=== PATIENT | female | born 1985 | race Caucasian/White ===

== ENCOUNTER 2017-02-09 09:17 | Inpatient (IN) | payer OTHER ==
[~2017-02-09] VITALS: Ht 162.6 cm; Wt 82.6 kg
[2017-02-09] MEDS ORDERED: morphine 4 MG/ML VIAL IV STA ×2 (10:03→14:13)
[2017-02-09] MEDS ORDERED: ONDANSETRON 4 MG INJ IV STA ×2 (10:03→14:13)
[2017-02-09 10:23] LABS: ADD SCAN DIFF NO
[2017-02-09 10:26] LABS: BASOPHILS % 0.3 % (0.0-2.0); EOSINOPHILS # 0.1 10^3/ul (0.0-0.5); HEMATOCRIT 30.7 % (37.0-47.0); HEMOGLOBIN 9.2 g/dl (12.0-16.0); LYMPHOCYTES # 1.7 10^3/ul (0.8-2.9); LYMPHOCYTES % 13.4 % (15.0-51.0); MEAN CORPUSCULAR HEMOGLOBIN 20.6 pg (29.0-33.0); MEAN CORPUSCULAR VOLUME 68.7 fl (82.0-101.0); MEAN PLATELET VOLUME 10.7 fl (7.4-10.4); MONOCYTE # 0.8 10^3/ul (0.3-0.9); MONOCYTES % 6.7 % (0.0-11.0); NEUTROPHIL # 9.6 10^3/ul (1.6-7.5); NEUTROPHILS % 78.2 % (39.0-77.0); PLATELET COUNT 383 10^3/UL (140-415); RED BLOOD COUNT 4.47 10^6/ul (4.20-5.40); RED CELL DISTRIBUTION WIDTH 18.6 % (11.5-14.5); WHITE BLOOD COUNT 12.3 10^3/ul (4.8-10.8)
[2017-02-09 10:46] LABS: ALBUMIN/GLOBULIN RATIO 1.61; BILIRUBIN,INDIRECT 0.4 mg/dl (0-1.1); BILIRUBIN,TOTAL 0.4 mg/dl (0.2-1.3); CALCIUM 9.2 mg/dl (8.4-10.2); CREATININE 0.64 mg/dl (0.44-1.00); POTASSIUM 3.9 mmol/L (3.5-5.1); TOTAL PROTEIN 8.1 g/dl (6.1-8.1)
[2017-02-09] MEDS ORDERED: KETOROLAC 30 MG INJ IV STA (11:19)
--- NOTE | 2017-02-09 11:19 | ERD ---
ER Documentation Chief Complaint Date/Time DATE: 02/09/17 TIME: 11:15 Chief Complaint RIGHT LOWER QUADRANT PAIN,FEVER X 3 DAYS HPI This a 31-year-old female who presents the emergency department today complaining of right lower quadrant pain and fever for the past 3 days. States that she went to her primary care doctor today, Dr. Wright and was sent over here for further evaluation and workup. States that she had a temperature of 100.3 at the doctor's. States she took ibuprofen at 230 this morning. Denies any nausea vomiting, diarrhea. Denies any vaginal bleeding or vaginal discharge. States that she has had a tubal ligation. ROS All systems reviewed and are negative except as per history of present illness. Medications Home Meds No Active Prescriptions or Reported Meds Allergies Allergies: Coded Allergies: No Known Drug Allergy (Verified Allergy, Mild, 06/21/11) PMhx/Soc History of Surgery: No Anesthesia Reaction: No Hx Neurological Disorder: No Hx Respiratory Disorders: No Hx Cardiac Disorders: No Hx Psychiatric Problems: No Hx Miscellaneous Medical Probl: No Hx Alcohol Use: No Hx Substance Use: No Hx Tobacco Use: No Smoking Status: Never smoker Physical Exam Vitals Vital Signs Date Time Temp Pulse Resp B/P Pulse Ox O2 Delivery O2 Flow Rate FiO2 02/09/17 15:11 100.5 99 20 113/72 99 Room Air 02/09/17 09:18 99.6 104 18 133/64 98 Physical Exam Const: No acute distress Head: Atraumatic Eyes: Normal Conjunctiva ENT: Normal External Ears, Nose and Mouth. Neck: Full range of motion..~ No meningismus. Resp: Clear to auscultation bilaterally Cardio: Regular rate and rhythm, no murmurs Abd: Soft, right lower quadrant and right-sided pelvic pain per, non distended. Normal bowel sounds and no left lower quadrant pain. No right upper quadrant pain Skin: No petechiae or rashes Back: No midline or flank tenderness Ext: No cyanosis, or edema Neur: Awake and alert Psych: Normal Mood and Affect Result Diagram: 02/09/17 1015 02/09/17 1015 Results 24 hrs Laboratory Tests Test 02/09/17 10:15 02/09/17 11:02 White Blood Count 12.310^3/ul Red Blood Count 4.4710^6/ul Hemoglobin 9.2g/dl Hematocrit 30.7% Mean Corpuscular Volume 68.7fl Mean Corpuscular Hemoglobin 20.6pg Mean Corpuscular Hemoglobin Concent 30.0g/dl Red Cell Distribution Width 18.6% Platelet Count 26735^3/UL Mean Platelet Volume 10.7fl Neutrophils % 78.2% Lymphocytes % 13.4% Monocytes % 6.7% Eosinophils % 1.0% Basophils % 0.3% Nucleated Red Blood Cells % 0.0/100WBC Neutrophils # 9.610^3/ul Lymphocytes # 1.710^3/ul Monocytes # 0.810^3/ul Eosinophils # 0.110^3/ul Basophils # 0.010^3/ul Nucleated Red Blood Cells # 0.010^3/ul Sodium Level 143mmol/L Potassium Level 3.9mmol/L Chloride Level 105mmol/L Carbon Dioxide Level 26mmol/L Anion Gap 16 Blood Urea Nitrogen 10mg/dl Creatinine 0.64mg/dl Glucose Level 91mg/dl Calcium Level 9.2mg/dl Total Bilirubin 0.4mg/dl Direct Bilirubin 0.00mg/dl Indirect Bilirubin 0.4mg/dl Aspartate Amino Transf (AST/SGOT) 33IU/L Alanine Aminotransferase (ALT/SGPT) 40IU/L Alkaline Phosphatase 84IU/L Total Protein 8.1g/dl Albumin 5.0g/dl Globulin 3.10g/dl Albumin/Globulin Ratio 1.61 Lipase 24U/L Urine Color LT. YELLOW Urine Clarity CLEAR Urine pH 6.0 Urine Specific [place] 1.010 Urine Ketones NEGATIVE Urine Nitrite NEGATIVE Urine Bilirubin NEGATIVE Urine Urobilinogen 0.2 E.U./dL Urine Leukocyte Esterase NEGATIVE Urine Microscopic RBC 0-2/HPF Urine Microscopic WBC 0-2/HPF Urine Epithelial Cells RARE Urine Squamous Epithelial Cells Urine Bacteria RARE Urine Hemoglobin 2+ Urine Glucose NEGATIVE% Urine Total Protein NEGATIVE Current Medications Medications (Trade) Dose Ordered Sig/Fred Route PRN Reason Start Time Stop Time Status Last Admin Dose Admin Morphine Sulfate (morphine) 4 mg ONCE STAT IV 02/09/17 10:03 02/09/17 10:05 DC 02/09/17 10:12 Ondansetron HCl (Zofran Inj) 4 mg ONCE STAT IV 02/09/17 10:03 02/09/17 10:05 DC 02/09/17 10:11 Ketorolac Tromethamine (Toradol) 30 mg ONCE STAT IV 02/09/17 11:19 02/09/17 11:20 DC 02/09/17 11:25 Ondansetron HCl (Zofran Inj) 4 mg ONCE STAT IV 02/09/17 14:13 02/09/17 14:14 DC 02/09/17 14:34 Morphine Sulfate (morphine) 4 mg ONCE STAT IV 02/09/17 14:13 02/09/17 14:14 DC 02/09/17 14:34 Acetaminophen (Tylenol Tab) 500 mg ONCE STAT PO 02/09/17 15:17 02/09/17 15:18 DC 02/09/17 15:33 IV Flush (NS 3 ml) 3 ml PER PROTOCOL IV 02/09/17 16:00 Ondansetron HCl (Zofran Inj) 4 mg Q6H PRN IV NAUSEA AND/OR VOMITING 02/09/17 16:00 Acetaminophen/ Hydrocodone Bitart (Marshall (5/325)) 2 tab Q6H PRN PO SEVERE PAIN LEVEL 7-10 02/09/17 16:00 Morphine Sulfate 2 mg 2 mg Q4H PRN IV SEVERE PAIN LEVEL 7-10 02/09/17 16:00 Lactated Ringer's (Lr) 1,000 ml @ 125 mls/hr Q8H IV 02/09/17 16:00 Doxycycline Hyclate 100 mg 100 mg BID PO 02/09/17 16:00 Ceftriaxone Sodium (Rocephin) 50 ml @ 100 mls/hr Q24H IVPB 02/09/17 16:00 DIAGNOSTIC IMAGING REPORT Patient: VJ WALSH : 1985 Age: 31 Sex: F MR #: [id number] DOS: 02/09/17 0000 Ordering MD: ROSELIA MUNOZ PA-C Location: [facility] Room/Bed: PROCEDURE: US Pelvis CLINICAL INDICATION: Right pelvic pain TECHNIQUE: Sonographic evaluation of the pelvis was performed utilizing both transabdominal and transvaginal technique. Curved array transabdominal transducer technique as well as a high frequency endovaginal probe was utilized. Images were reviewed on the high-resolution PACS workstation. COMPARISON: CT abdomen and pelvis performed earlier on the same date FINDINGS: The uterus is normal in size, echogenicity, and morphology measuring 8.3 x 4.6 x 5.6 cm in dimension. The uterus is anteverted in normal position. The endometrium is within normal limits for a menstrual age female measuring 4.2 mm in diameter. The right ovary measures 3.3 x 1.8 x 2.1 cm in dimension. The left ovary measures 3.4 x 1.5 x 1.9 cm in dimension. The ovaries are symmetric in size, echogenicity, and morphology. Normal Doppler flow is demonstrated to both ovaries. There is mild fluid-filled distension of the fallopian tubes bilaterally. There are no adnexal masses. There is no significant free fluid in the pelvis. IMPRESSION: Mild fluid-filled distension of the fallopian tubes bilaterally may reflect hydrosalpinx or pyosalpinx. Clinical correlation required. Otherwise, unremarkable pelvic ultrasound. RPTAT: HH .Meagan Garcia MD, MD Date Time Electronically viewed and signed by .Meagan Garcia MD, on 02/09/2017 13 :47 .G/ CC: ROSELIA MUNOZ PA-C Procedures/[facility] This is a 31-year-old female who presents the emergency department today complaining of right lower quadrant pain and intermittent fevers for the past 3 days. Patient was sent here by Dr. Wright for further evaluation and management. I did obtain laboratory work as well as imaging. Laboratory work shows an elevated white blood cell count of 12.3. She has a hemoglobin of 9.2. Platelets are within normal limits. Electro lites are within normal limits. Lipase within normal limits. Liver functions within normal limits per there is no indication for transfusion. UA is negative for infection. Urine test is negative CT abdomen pelvis noncontrast shows no evidence of urolithiasis or obstructive uropathy. There is a normal-appearing appendix. There is no other significant intra-abdominal or pelvic process identified She has pain persisted and therefore did obtain an ultrasound Ultrasound shows mild fluid-filled distention of the fallopian tubes bilaterally may reflect hydrosalpinx or pyosalpinx. There are no adnexal masses. There is no significant free fluid in the pelvis. I placed a call to the laborist audio visual collections coordinator Dr. Woodward, who agreed to see the patient. , after doing a pelvic exam feels that the patient requires mission for IV antibiotics to treat possible tubo-ovarian abscess. This was explained to the patient. There is no evidence to suggest ovarian torsion at this time. This is likely the source of the patient's right-sided pelvic and abdominal pain. There is no other evidence of acute surgical abdomen. Patient was given morphine, Zofran here in the emergency department however pain persisted and she was then given Toradol. Patient developed a fever of 100.5 here in the emergency department and was given Tylenol. I have notified Dr. Machado of admission and any furhter orders placed will be done by Dr. Woodward Departure Diagnosis: Primary Impression: Pelvic pain Additional Impression: Fallopian tube abscess Condition: ROSELIA Chua PA-C Feb 09, 2017 11:19
--- NOTE | 2017-02-09 11:43 | RADRPT ---
PROCEDURE: CT Abdomen and Pelvis without contrast. CLINICAL INDICATION: Abdominal pain. TECHNIQUE: CT scan of the abdomen and pelvis without contrast was performed on a multidetector hig h-resolution CT scanner. The patient was scanned without intravenous contrast. Coronal and sagittal reformatted images were obtained from the axial source images. Images were reviewed on a high-resol muzu tv PACS workstation. The total exam CTDI equals 12.89 mGy and the total exam DLP equals 773.32 mG y-cm. One or the following dose reduction techniques were used: -Automated exposure control. -Adjustment of the mA and/or KV according to patient's size. -Use of iterative reconstruction technique. COMPARISON: None. FINDINGS: Lung Bases: Unremarkable. GI:. Unremarkable. Liver: Unremarkable. Gallbladder: Unremarkable. Pancreas: Unremarkable. Spleen: Unremarkablel Adrenals: Unremarkable. Kidneys: There is no evidence of urolithiasis or obstructive uropathy. Bladder: Unremarkable. Pelvic Organs: Unremarkable. Skeleton: Normal for age. Other: N/A IMPRESSION: 1. No evidence of urolithiasis or obstructive uropathy. 2. Normal appearing appendix visualized. 3. No other significant intra-abdominal or pelvic process identified. RPTAT: [facility] Physician Rg Date Time Electronically viewed and signed by Physician Rg on 02/09/2017 11:43 /
[2017-02-09 11:58] LABS: ADD UMIC YES; URINE BILIRUBIN (Dip) NEGATIVE (NEGATIVE); URINE BLOOD (Dip) 2+ (NEGATIVE); URINE COLOR LT. YELLOW (YELLOW); URINE GLUCOSE (Dip) NEGATIVE (NEGATIVE); URINE KETONES (Dip) NEGATIVE (NEGATIVE); URINE LEUKOCYTE ESTERASE (Dip) NEGATIVE (NEGATIVE); URINE NITRITE (Dip) NEGATIVE (NEGATIVE); URINE TOTAL PROTEIN (Dip) NEGATIVE (NEGATIVE); URINE UROBILINOGEN (Dip) 0.2 E.U./dL (0.1-1.0)
[2017-02-09 12:31] LABS: URINE RBCS 0-2 /HPF (0)
[2017-02-09 12:32] LABS: BACTERIA,URINE RARE
--- NOTE | 2017-02-09 13:48 | RADRPT ---
PROCEDURE: US Pelvis CLINICAL INDICATION: Right pelvic pain TECHNIQUE: Sonographic evaluation of the pelvis was performed utilizing both transabdominal and tr ansvaginal technique. Curved array transabdominal transducer technique as well as a high frequency endovaginal probe was utilized. Images were reviewed on the high-resolution PACS workstation. COMPARISON: CT abdomen and pelvis performed earlier on the same date FINDINGS: The uterus is normal in size, echogenicity, and morphology measuring 8.3 x 4.6 x 5.6 cm in dimension . The uterus is anteverted in normal position. The endometrium is within normal limits for a mens trual age female measuring 4.2 mm in diameter. The right ovary measures 3.3 x 1.8 x 2.1 cm in dimension. The left ovary measures 3.4 x 1.5 x 1.9 c m in dimension. The ovaries are symmetric in size, echogenicity, and morphology. Normal Doppler fl ow is demonstrated to both ovaries. There is mild fluid-filled distension of the fallopian tubes bi laterally. There are no adnexal masses. There is no significant free fluid in the pelvis. IMPRESSION: Mild fluid-filled distension of the fallopian tubes bilaterally may reflect hydrosalpinx or pyosalpi nx. Clinical correlation required. Otherwise, unremarkable pelvic ultrasound. RPTAT: HH .Meagan Garcia MD, Date Time Electronically viewed and signed by .Meagan Garcia MD, on 02/09/2017 13:47 .G/
[2017-02-09] MEDS ORDERED: ACETAMINOPHEN 500 MG TAB PO STA (15:17)
[2017-02-09] MEDS ORDERED: NACL 0.9% 3 ML SYG IV SCH (16:00)
[2017-02-09] MEDS ORDERED: morphine 2 MG INJ IV PRN (16:00)
[2017-02-09] MEDS: CEFTRIAXONE 1 GM/50 ML (PMX) 50 ML IVPB SCH (16:20)
[2017-02-09] MEDS: LACTATED RINGER'S 1,000 ML IV SCH (16:45)
[2017-02-09] MEDS: DOXYCYCLINE 100 MG TAB PO SCH ×2 (17:17→21:38)
[2017-02-09 20:18] VITALS: TEMP 98.8
[2017-02-09 21:11] VITALS: Ht 162.6 cm; Wt 82.6 kg
[2017-02-09 22:11] VITALS: BP 95/55; RESP 18
[2017-02-10] MEDS: LACTATED RINGER'S 1,000 ML IV SCH ×3 (01:35→16:00)
[2017-02-10] MEDS: HYDROCODONE/APAP (5/325) TAB PO PRN ×2 (02:35→11:08)
[2017-02-10 05:13] LABS: ADD SCAN DIFF NO; BASOPHILS % 0.2 % (0.0-2.0); EOSINOPHILS # 0.3 10^3/ul (0.0-0.5); HEMATOCRIT 25.5 % (37.0-47.0); HEMOGLOBIN 7.7 g/dl (12.0-16.0); LYMPHOCYTES # 1.8 10^3/ul (0.8-2.9); LYMPHOCYTES % 19.9 % (15.0-51.0); MEAN CORPUSCULAR HEMOGLOBIN 20.8 pg (29.0-33.0); MEAN CORPUSCULAR HGB CONC 30.2 g/dl (32.0-37.0); MEAN CORPUSCULAR VOLUME 68.9 fl (82.0-101.0); MEAN PLATELET VOLUME 10.4 fl (7.4-10.4); MONOCYTE # 0.8 10^3/ul (0.3-0.9); MONOCYTES % 8.7 % (0.0-11.0); NEUTROPHIL # 6.1 10^3/ul (1.6-7.5); NEUTROPHILS % 67.9 % (39.0-77.0); PLATELET COUNT 328 10^3/UL (140-415); RED CELL DISTRIBUTION WIDTH 18.6 % (11.5-14.5)
[2017-02-10 07:35] VITALS: BP 130/67; RESP 20
[2017-02-10] MEDS: DOXYCYCLINE 100 MG TAB PO SCH ×2 (08:11→20:49)
[2017-02-10] MEDS: SOD FERRIC GLUC COMPLX 125 MG in SOD CHLORIDE 0.9% 100 ML IVPB SCH (12:11)
[2017-02-10] MEDS: CEFTRIAXONE 1 GM/50 ML (PMX) 50 ML IVPB SCH (17:20)
[2017-02-10] MEDS: ONDANSETRON 4 MG INJ IV PRN ×2 (17:27→20:49)
[2017-02-10 21:00] VITALS: BP 132/79; PULSE 79; RESP 18
[2017-02-10] MEDS ORDERED: IBUPROFEN 600 MG TAB PO PRN (21:00)
--- NOTE | 2017-02-10 22:23 | QN ---
Documentation Comment CONDUCTOR FREIGHT- Laborist Pt states pain is much better today, from 9/10 yesterday to 4/10 today. Taking very little pain meds 2/2 feeling nausea and dizziness with meds. Denies vomiting or vaginal bleeding. At time of exam, last Morphine 27hrs ago, last [place] 9hrs ago VS 98.6 130/67 Gen: well appearing, NAD Abd: soft, NTND Labs 9.0 (from 12.3)>7.7/25.5<328 A/P HD#2 for 31yo P4 admitted for inpatient management of pain in the setting of pyosalpinx vs hydrosalpinx Will add Ibuprofen to pain regimen given pt c/o side effects of narcotics Continue IV Rocephin and PO Doxy for 48H assuming pt continues to show clinical improvement. Will be d/c'd home thereafter to complete 14d course of Doxy. Afebrile since 15102/09/17 F/u GC/CT Pt w/known anemia. Continue supplemental iron. Recommended hormonal management which pt will discuss w/CONDUCTOR FREIGHT at next appointment MAURICE CERNA MD Feb 10, 2017 22:23
[2017-02-11] MEDS: LACTATED RINGER'S 1,000 ML IV SCH ×3 (00:16→16:00)
[2017-02-11 06:04] LABS: ADD SCAN DIFF NO
[2017-02-11 06:13] LABS: BASOPHILS % 0.4 % (0.0-2.0); EOSINOPHILS # 0.4 10^3/ul (0.0-0.5); HEMATOCRIT 26.2 % (37.0-47.0); LYMPHOCYTES # 1.7 10^3/ul (0.8-2.9); LYMPHOCYTES % 24.6 % (15.0-51.0); MEAN CORPUSCULAR HGB CONC 30.5 g/dl (32.0-37.0); MEAN CORPUSCULAR VOLUME 68.8 fl (82.0-101.0); MEAN PLATELET VOLUME 10.6 fl (7.4-10.4); MONOCYTE # 0.7 10^3/ul (0.3-0.9); MONOCYTES % 10.2 % (0.0-11.0); NEUTROPHILS % 58.5 % (39.0-77.0); PLATELET COUNT 358 10^3/UL (140-415); RED BLOOD COUNT 3.81 10^6/ul (4.20-5.40); RED CELL DISTRIBUTION WIDTH 18.8 % (11.5-14.5); WHITE BLOOD COUNT 6.8 10^3/ul (4.8-10.8)
[2017-02-11 07:05] VITALS: BP 107/63; RESP 16
[2017-02-11] MEDS: DOXYCYCLINE 100 MG TAB PO SCH ×2 (08:40→20:55)
[2017-02-11] MEDS: ONDANSETRON 4 MG INJ IV PRN (08:40)
[2017-02-11] MEDS: SOD FERRIC GLUC COMPLX 125 MG in SOD CHLORIDE 0.9% 100 ML IVPB SCH (12:36)
[2017-02-11] MEDS: CEFTRIAXONE 1 GM/50 ML (PMX) 50 ML IVPB SCH (16:15)
--- NOTE | 2017-02-11 16:22 | QN ---
Documentation Comment patient is seen at the bedside,main complaint at this time is constipation VS stable abdomen soft nt nd --->colace is added --->Possible switch to PO antibiotics and discharge tomorrow -->patient's questions answered KATIA BARBOSA M.D. Feb 11, 2017 16:22
[2017-02-11] MEDS: ACETAMINOPHEN 325 MG TAB PO PRN ×2 (17:23→20:58)
[2017-02-11 20:22] VITALS: BP 108/64; RESP 18
[2017-02-11] MEDS: DOCUSATE SODIUM 100 MG CAP PO SCH (20:55)
[2017-02-12] MEDS: LACTATED RINGER'S 1,000 ML IV SCH ×2 (00:03→08:43)
[2017-02-12 07:44] VITALS: BP 101/58; RESP 18
[2017-02-12] MEDS: DOCUSATE SODIUM 100 MG CAP PO SCH (08:43)
[2017-02-12] MEDS: DOXYCYCLINE 100 MG TAB PO SCH (08:43)
[2017-02-12] MEDS: SOD FERRIC GLUC COMPLX 125 MG in SOD CHLORIDE 0.9% 100 ML IVPB SCH (11:04)
--- NOTE | 2017-02-12 12:14 | PD.PPDC ---
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
--- NOTE | 2017-02-12 19:36 | DS ---
DATE OF ADMISSION: 02/09/2017 DATE OF DISCHARGE: 02/12/2017 DISCHARGE DIAGNOSIS: Tubo-ovarian abscess. HISTORY AND HOSPITAL COURSE: The patient is a 31-year-old, G3, P3 who presented to the emergency ro om complaining of increased abdominal pain and fevers. On examination, on imaging, the patient was found to have a 5 x 1 cm complex right fluid-filled fallopian tubes which could correlate with pyosa lpinx. Patient also had a temperature of 100.5 and high white count of 12.3. At this point, the cary gonzalez was admitted for a PID/tubo ovarian abscess and started on Rocephin and doxycycline p.o. Thro ughout the course of her stay, and at discharge, the patient is feeling better. The patient has had no fevers for greater than 48 hours. White count is down to 6. On the day of discharge, the patie nt is tolerating p.o., ambulating, is passing gas, has had a bowel movement. No nausea, vomiting, f dino or chills. On examination, vital signs stable. Abdomen exam is soft, nontender, no rebound, no guarding. No vaginal discharge. Patient discharged home with doxycycline and Flagyl for another 10 days. 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 Dictated By: LALITO STEIN MD /NTS Conf#: [id number] DID#: [id number]
== END 2017-02-12 15:04 | disposition home or self-care (01) | DRG 759 ==
LOC: FTE 09:17 → PP2 11:53
DX: N70.93 Salpingitis and oophoritis, unspecified (principal); D64.9 Anemia, unspecified; K59.00 Constipation, unspecified
CPT/HCPCS: 36415; 74176; 76830; 76856; 80053; 81001; 83690; 85025; 87591; 96361; 96374; 96375; 96376; J0696; J1885; J2270; J2405; J2916; J7120

== ENCOUNTER 2019-04-19 01:04 | Emergency (ER) | payer OTHER ==
[~2019-04-19] VITALS: Ht 162.6 cm; Wt 86.0 kg
[~2019-04-19 01:04] MED LIST: ACET500C5 PO; CIPR500T4 PO; LACT1CAP57 PO
[2019-04-19 01:10] VITALS: Ht 162.6 cm; Wt 86.0 kg
[2019-04-19] MEDS ORDERED: ONDANSETRON (ODT) 4 MG TAB ODT STA (03:02)
[2019-04-19 04:55] VITALS: BP 117/80; PULSE 87; RESP 17
--- NOTE | 2019-04-19 05:41 | ERD ---
ER Documentation Chief Complaint Chief Complaint abdominal pain with n/d and bright red rectal bleed hx of hemrrhoids HPI Patient 33-year-old female presented to ED for abdominal pain bloody diarrhea times a few hours. Patient states she also feels nauseous with a lack of appetite. Patient states she has no past medical history she has no allergies to medication she is currently not taking any medications. Patient rates the di scomfort 10 out of 10 and states it comes and goes. The patient's vitals are all within normal limits. Patient states this is never happened to her before ROS All systems reviewed and are negative except as per history of present illness. Medications Home Meds Active Scripts Acetaminophen* (Tylophen*) 500 Mg Capsule, 1 CAP PO Q6H PRN for PAIN AND OR ELEVATED TEMP, #20 CAP Prov:ARLIN LOZA PA-C 04/19/19 Lactobacillus Rhamnosus* (Culturelle*) 1 Each Cap.sprink, 1 CAP PO BID for 30 Days, CAP Prov:ARLIN LOZA PA-C 04/19/19 Ciprofloxacin Hcl* (Ciprofloxacin Hcl*) 500 Mg Tablet, 500 MG PO BID for 5 Days, TAB Prov:ARLIN LOZA PA-C 04/19/19 Allergies Allergies: Coded Allergies: No Known Drug Allergy (Verified Allergy, Mild, 02/09/17) PMhx/Soc Medical and Surgical Hx: pt denies Medical Hx, pt denies Surgical Hx History of Surgery: No Anesthesia Reaction: No Hx Neurological Disorder: No Hx Respiratory Disorders: No Hx Cardiac Disorders: No Hx Psychiatric Problems: No Hx Miscellaneous Medical Probl: No Hx Alcohol Use: No Hx Substance Use: No Hx Tobacco Use: No Smoking Status: Never smoker FmHx Family History: No diabetes, No coronary disease, No other Physical Exam Vitals Vital Signs Date Temp Pulse Resp B/P (MAP) Pulse Ox O2 O2 Flow FiO2 Time Delivery Rate 04/19/19 98.1 87 17 117/80 98 Room Air 04:55 (92) 04/19/19 98.1 83 16 123/56 99 01:10 (78) Physical Exam GENERAL: Moderate distress HEENT: Atraumatic. Conjunctivae are pink. Pupils equal, round, and reactive to light. There is no scleral icterus. Tympanic membranes clear bilaterally. Oropharynx clear. No nystagmus or photophobia. NECK: C-spine is soft and supple. There is no meningismus. There is no cervical lymphadenopathy. CHEST: Clear to auscultation bilaterally. There are no rales, wheezes or rhonchi. HEART: Regular rate and rhythm. No murmurs, clicks, rubs or gallops. ABDOMEN:Soft, nontender and nondistended. Good bowel sounds. No rebound or guarding. No gross peritonitis. No gross organomegaly or masses. No Barragan sign or McBurney point tenderness. BACK: No midline or flank tenderness. Result Diagram: 04/19/19 0331 04/19/19 033 Results 24 hrs Laboratory Tests Test 04/19/19 03:31 04/19/19 04:01 White Blood Count 7.9 10^3/ul Red Blood Count 4.22 10^6/ul Hemoglobin 9.2 g/dl Hematocrit 30.5 % Mean Corpuscular Volume 72.3 fl Mean Corpuscular Hemoglobin 21.8 pg Mean Corpuscular Hemoglobin Concent 30.2 g/dl Red Cell Distribution Width 16.9 % Platelet Count 390 10^3/UL Mean Platelet Volume 10.4 fl Immature Granulocytes % 0.400 % Neutrophils % 70.1 % Lymphocytes % 19.1 % Monocytes % 6.5 % Eosinophils % 3.4 % Basophils % 0.5 % Nucleated Red Blood Cells % 0.0 /100WBC Immature Granulocytes # 0.030 10^3/ul Neutrophils # 5.5 10^3/ul Lymphocytes # 1.5 10^3/ul Monocytes # 0.5 10^3/ul Eosinophils # 0.3 10^3/ul Basophils # 0.0 10^3/ul Nucleated Red Blood Cells # 0.0 10^3/ul Urine Color YELLOW Urine Clarity SLIGHTLY CLOUDY Urine pH 5.0 Urine Specific [place] 1.015 Urine Ketones NEGATIVE mg/dL Urine Nitrite NEGATIVE mg/dL Urine Bilirubin NEGATIVE mg/dL Urine Urobilinogen NEGATIVE mg/dL Urine Leukocyte Esterase NEGATIVE Cherry/ul Urine Microscopic RBC 25 /HPF Urine Microscopic WBC 0 /HPF Urine Bacteria FEW /HPF Urine Mucus MANY /HPF Urine Hemoglobin 3+ mg/dL Urine Glucose NEGATIVE mg/dL Urine Total Protein NEGATIVE mg/dl Sodium Level 140 mmol/L Potassium Level 3.9 mmol/L Chloride Level 105 mmol/L Carbon Dioxide Level 30 mmol/L Anion Gap 5 Blood Urea Nitrogen 13 mg/dl Creatinine 0.66 mg/dl Est Glomerular Filtrat Rate mL/min > 60 mL/min Glucose Level 104 mg/dl Calcium Level 8.9 mg/dl Total Bilirubin 0.3 mg/dl Direct Bilirubin 0.00 mg/dl Indirect Bilirubin 0.3 mg/dl Aspartate Amino Transf (AST/SGOT) 34 IU/L Alanine Aminotransferase (ALT/SGPT) 30 IU/L Alkaline Phosphatase 87 IU/L Total Protein 7.5 g/dl Albumin 4.1 g/dl Globulin 3.40 g/dl Albumin/Globulin Ratio 1.20 POC Beta HCG, Qualitative NEGATIVE Current Medications Medications Dose Sig/Fred Start Time Status Last (Trade) Ordered Route PRN Stop Time Admin Dose Reason Admin Ondansetron 4 mg ONCE STAT 04/19/19 DC 04/19/19 HCl (Zofran ODT 03:02 03:49 Odt) 04/19/19 03:05 Procedures/MDM ED course: The patient was stable throughout the ED course. The patient and/or family informed of laboratory and diagnostic imaging results throughout the ED course. Medications given in ER: Zofran Patient tolerated medication well with no adverse reactions. Patient reported improvement in pain. Medical decision making: Is a 33-year-old female presented to ED for abdominal pain bloody diarrhea times a few hours. Patient's vitals were all normal limits. Patient's physical exam was unremarkable. Patient's urine test was negative. Patient's blood work showed no signs of leukocytosis. Patient states this is never happened to her before. Patient does state she has been eating out a lot and having food from food trucks. She does not know she got sick from that. At this time I have low suspicion for acute appendicitis, ectopic , cholecystitis, pyelonephritis, UTI or kidney stones, ulcerative colitis. Upon reevaluation the patient appears to be doing much better and states the nausea symptoms have resided. The patient will be treated with antibiotics Cipro for infectious diarrhea. I advised the patient if symptoms worsen she should return to ER immediately. Advised patient should follow-up primary care provider in 1 to 2 days regarding this visit. All questions were answered upon discharge and patient agreement treatment plan Prescription for home: Cipro Probiotics Acetaminophen I have discussed with the patient proper use and common side effects to expert with the medication . I advised the patient/family to speak with the pharmacist dispensing the medication to be advised of any potential drug interactions with other medication or supplements they may be taking. Discharge: At this time, patient is stable for discharge and outpatient management. I have instructed the patient to follow-up with his\her primary care physician in 1 to 2 days. I have discussed with the patient the possibility of needing to see a specialist for further work-up and imaging studies if symptoms persist. I have instructed the patient to promptly return to the ER for any new or worsening symptoms including increased pain, fever, nausea, vomiting, weakness or LOC. The patient and\or family expressed understanding of and agreement with this plan. All questions were answered. Home care instructions were provided. Disclaimer: Inadvertent spelling and grammatical errors are likely due to EHR\dictation software use and do not reflect on the overall quality of patient care. Also, please note that the electronic time recorded on the note does not necessarily reflect the actual time of the patient encounter. Departure Diagnosis: Primary Impression: Infectious diarrhea Additional Impression: Abdominal pain Abdominal location: generalized Qualified Codes: R10.84 - Generalized abdominal pain Condition: Stable Patient Instructions: Diarrhea, Unk Cause (Adult) Report Pendg Referrals: [facility] YOU HAVE RECEIVED A MEDICAL SCREENING EXAM AND THE RESULTS INDICATE THAT YOU DO NOT HAVE A CONDITION THAT REQUIRES URGENT TREATMENT IN THE EMERGENCY DEPARTMENT. FURTHER EVALUATION AND TREATMENT OF YOUR CONDITION CAN WAIT UNTIL YOU ARE SEEN IN YOUR DOCTORS OFFICE WITHIN THE NEXT 1-2 DAYS. IT IS YOUR RESPONSIBILITY TO MAKE AN APPOINTMENT FOR FOLOW-UP CARE. IF YOU HAVE A PRIMARY DOCTOR --you should call your primary doctor and schedule an appointment IF YOU DO NOT HAVE A PRIMARY DOCTOR YOU CAN CALL OUR PHYSICIAN REFERRAL HOTLINE AT IF YOU CAN NOT AFFORD TO SEE A PHYSICIAN YOU CAN CHOSE FROM THE FOLLOWING [facility] [address] [facility]. [facility] [address] [facility] [address] [facility] [facility] [address] [facility] [facility]. [facility] [address] [facility]. [facility]. [address] [facility]. [facility] YOU HAVE RECEIVED A MEDICAL SCREENING EXAM AND THE RESULTS INDICATE THAT YOU DO NOT HAVE A CONDITION THAT REQUIRES URGENT TREATMENT IN THE EMERGENCY DEPARTMENT. FURTHER EVALUATION AND TREATMENT OF YOUR CONDITION CAN WAIT UNTIL YOU ARE SEEN IN YOUR DOCTORS OFFICE WITHIN THE NEXT 1-2 DAYS. IT IS YOUR RESPONSIBILITY TO MAKE AN APPOINTMENT FOR FOLOW-UP CARE. IF YOU HAVE A PRIMARY DOCTOR --you should call your primary doctor and schedule and appointment IF YOU DO NOT HAVE A PRIMARY DOCTOR YOU CAN CALL OUR PHYSICIAN REFERRAL HOTLINE AT . IF YOU CAN NOT AFFORD TO SEE A PHYSICIAN YOU CAN CHOSE FROM THE FOLLOWING [facility] INSTITUTIONS: [facility] [address] [place] [address] [facility] [address] [place] [address] [facility] [address] [place] [address] Additional Instructions: Call your primary care doctor TOMORROW for an appointment during the next 1-2 days.See the doctor sooner or return here if your condition worsens before your appointment time. ARLIN LOZA PA-C Apr 19, 2019 05:41
== END 2019-04-19 04:58 | disposition home or self-care (01) ==
LOC: FTE 01:04
DX: A09 Infectious gastroenteritis and colitis, unspecified (principal)
CPT/HCPCS: 36415; 80053; 81001; 81025; 85025; Z7502; Z7610; 99283